=== PATIENT | male | born 1980 | race Caucasian/White ===

== ENCOUNTER 2021-08-17 13:42 | Emergency (ER) | payer SELFPAY ==
[~2021-08-17] VITALS: Ht 167.6 cm; Wt 79.4 kg
[2021-08-17 13:56] VITALS: BP 171/101
[2021-08-17 14:27] VITALS: BP 164/89
--- NOTE | 2021-08-17 14:28 | NUR ---
NO COMPLETE ASSESSMENT NO NURSING INTERVENTION NEEDED.
--- NOTE | 2021-08-17 14:33 | NUR ---
PATIENT [facility] POLICE DEPT. PATIENT EXAMINED BY DR. AUGUSTINE. PATIENT MEDICALLY CLEARED AND RELEASED IN CUSTODY IN STABLE CONDITION. ORIGINAL PRE-BOOK FORM GIVEN TO OFFICER Luis TAM.
== END 2021-08-17 14:33 ==
LOC: MED 13:42
DX: S43.402A Unspecified sprain of left shoulder joint, initial encounter (principal); S09.90XA Unspecified injury of head, initial encounter; I10 Essential (primary) hypertension; Y04.0XXA Assault by unarmed brawl or fight, initial encounter; Y93.89 Activity, other specified; Y92.89 Other specified places as the place of occurrence of the external cause; Y99.8 Other external cause status
CPT/HCPCS: 73030; 99283